=== PATIENT | female | born 1945 | race Caucasian/White ===

== ENCOUNTER 2016-11-21 04:40 | Day surgery (SDC) | payer MEDICARE ==
[~2016-11-21] VITALS: Ht 162.6 cm; Wt 59.0 kg
[2016-11-21] MEDS ORDERED: 0.9% Sodium Chloride 250 ML IV ONE (08:00)
[2016-11-21] MEDS ORDERED: Zoledronic Acid 5 mg/100 mL Premix IV ONE (08:30)
[2016-11-21 09:09] VITALS: BP 132/72; PULSE 61; RESP 16; O2SAT 98
--- NOTE | 2016-11-21 12:16 | NUR ---
reclast infusion pt denies any changes to health or medications states she has tolerated reclast infusions well in the past (x2) IVF and reclast administered; no adverse s/s; vss pt to return in one year
== END 2016-11-21 23:59 | disposition home or self-care (01) ==
LOC: MOCO 04:40
PROVIDERS: ATTEND Internal Medicine
DX: M81.0 Age-related osteoporosis without current pathological fracture (principal)
CPT/HCPCS: 96365; J3489; J7050